=== PATIENT | male | born 1995 ===

== ENCOUNTER 2019-01-01 07:04 | Emergency (ER) | payer OTHER ==
[2019-01-01 07:11] VITALS: BMI 20.9
--- NOTE | 2019-01-01 07:40 | ED PDOC ---
HPI: Psych/Substance Abuse Time Seen by Provider: 01/01/19 07:14 Chief Complaint (Nursing): Psychiatric Evaluation Chief Complaint (Provider): Psychiatric Evaluation History Per: Patient, EMS History/Exam Limitations: no limitations Onset/Duration Of Symptoms: Hrs Current Symptoms Are (Timing): Still Present Associated Symptoms: denies: Suicidal Thoughts Additional Complaint(s): 23 year old male with unknown past medical and psychiatric history who was brought to the ED by EMS for psychiatric evaluation. According to EMS, reported that patient was extremely religiously preoccupied sometime early this morning and was singing repeatedly about god and his love for god. She stated that patient ran out of the house and was standing in the rain, all of which prompted her concern for his safety so she called 911. Patient is denying any medical complaints at this time and is observed to be religiously preoccupied. He blessed the provider repeatedly and hugged him, citing his love for Raghavendra Ty. Patient continues to deny any medical or psychiatric complaints and denies any medical or psychiatric history. Patient denies any suicidal or homicidal ideation at this time. PMD: none provided Past Medical History Reviewed: Historical Data, Nursing Documentation, Vital Signs Vital Signs: Last Vital Signs Temp 98.0 F 01/01/19 07:11 Pulse 100 H 01/01/19 07:11 Resp 18 01/01/19 07:11 BP 137/90 01/01/19 07:11 Pulse Ox 98 01/01/19 07:11 - Medical History PMH: No Chronic Diseases - Surgical History Surgical History: No Surg Hx - Family History Family History: States: Unknown Family Hx - Social History Current smoker - smoking cessation education provided: No Alcohol: None Drugs: Denies - Home Medications Home Medications: Ambulatory Orders Medication Instructions Recorded No Known Home Med 01/01/19 - Allergies Allergies/Adverse Reactions: Allergies Allergy/AdvReac Type Severity Reaction Status Date / Time No Known Allergies Allergy Verified 01/01/19 07:18 Review of Systems ROS Statement: Except As Marked, All Systems Reviewed And Found Negative Psych: Positive for: Other (religiously preoccupied, (-) homicidal ideation). Negative for: Suicidal ideation Physical Exam - Reviewed Nursing Documentation Reviewed: Yes Vital Signs Reviewed: Yes - Physical Exam Appears: Positive for: Non-toxic, No Acute Distress Head Exam: Positive for: ATRAUMATIC, NORMAL INSPECTION, NORMOCEPHALIC Skin: Positive for: Normal Color, Warm, DRY Eye Exam: Positive for: EOMI, Normal appearance, PERRL Neck: Positive for: Normal, Painless ROM Cardiovascular/Chest: Positive for: Regular Rate, Rhythm. Negative for: Murmur Respiratory: Positive for: Normal Breath Sounds. Negative for: Respiratory Distress Gastrointestinal/Abdominal: Positive for: Normal Exam, Soft. Negative for: Tenderness Extremity: Positive for: Normal ROM. Negative for: Deformity, Swelling Neurological/Psych: Positive for: Awake, Alert, Normal Tone, Oriented (x3), Mood/Affect (euphoric affect ). Negative for: Motor/Sensory Deficits - Laboratory Results Result Diagrams: 01/01/19 09:24 01/01/19 09:24 - ECG O2 Sat by Pulse Oximetry: 98 (RA) Pulse Ox Interpretation: Normal Medical Decision Making Medical Decision Making: Time: 7:18 Impression: 23 year old male brought to Ed for psychiatric evaluation in setting of yazidism preoccupation Plan: --Patient placed on 1:1 due to elopement risk --Crisis Evaluation ordered 8:05 presented to the ED and provided further history. She states that she did not call 911 and that police found him acting bizarre after he ran out of the house. She reports that they informed her and then brought him to the ED. According to , patient came from [place] in 2018 and has been fine but for the last few weeks has been extremely religiously preoccupied. She admits that she now feels that he has an "obsession." also reports that patient never seems to be responding to any auditory or visual hallucinations. 10:30 Patient referred for [facility] [place] crisis team. 11:15 Patient is resting comfortably in the ED at this time with stable vitals. He offers no other complaints and is awaiting [facility] [place]. 12:25 patient is still resting in ED with no new complaints and stable vitals. Pending [facility] [place] 1:35 Vitals remain stable and patient is still comfortable in ED. Patient is still pe nding [facility] [place]. 3PM Patient signed out to Dr Gutierrez pending [facility] screener evaluation and re- evaluation Scribe Attestation: Documented by Traci Nguyen, acting as a scribe for Paul Jarvis MD. Provider Scribe Attestation: All medical record entries made by the Scribe were at my direction and personally dictated by me. I have reviewed the chart and agree that the record accurately reflects my personal performance of the history, physical exam, medical decision making, and the department course for this patient. I have also personally directed, reviewed, and agree with the discharge instructions and disposition. Disposition - Clinical Impression Clinical Impression: Paranoid behavior - Disposition Disposition: Routine/Home Disposition Time: 03:00 Condition: STABLE Forms: [employer] (Sammarinese)
[2019-01-01 09:41] LABS: BASO % 0.4 % (0.0-2.0); EOS % 0.1 % (0.0-4.0); LYMPH # 1.1 K/uL (1.0-4.3); LYMPH % 11.4 % (20.0-40.0); MEAN CELL VOLUME 86.6 fl (80.0-94.0); MEAN CORPUSCULAR HEMOGLOBIN 29.6 pg (27.0-31.0); MEAN CORPUSCULAR HGB CONC 34.2 g/dL (33.0-37.0); MEAN PLATELET VOLUME 8.9 fl (7.2-11.7); MONO # 0.6 K/uL (0.0-0.8); MONO % 6.5 % (0.0-10.0); NEUT % 81.6 % (50.0-75.0); RBC 5.08 Mil/uL (4.40-5.90); RED CELL DISTRIBUTION WIDTH 13.7 % (11.5-14.5); WHITE BLOOD COUNT 9.8 K/uL (4.8-10.8)
[2019-01-01 09:51] LABS: ALB/GLOB RATIO 1.4 (1.0-2.1); ALT/SGPT 23 U/L (21-72); AST/SGOT 30 U/L (17-59); BLOOD UREA NITROGEN 15 mg/dl (9-20); CALCIUM 10.1 mg/dL (8.4-10.2); GFR NON-AFRICAN AMERICAN > 60
[2019-01-01 12:19] LABS: BARBITURATES, UR NEGATIVE (NEGATIVE); BENZODIAZEPINES, UR NEGATIVE (NEGATIVE); OPIATES, UR NEGATIVE (NEGATIVE); PHENCYCLIDINE, UR NEGATIVE (NEGATIVE)
--- NOTE | 2019-01-01 15:17 | ED PDOC ---
- Laboratory Results Result Diagrams: 01/01/19 09:24 01/01/19 09:24 Lab Results: Total Bilirubin 1.0 mg/dl (0.2-1.3) 01/01/19 09:24 AST 30 U/L (17-59) 01/01/19 09:24 ALT 23 U/L (21-72) 01/01/19 09:24 Alkaline Phosphatase 60 U/L (38-126) 01/01/19 09:24 Total Protein 8.4 G/DL (6.3-8.2) H 01/01/19 09:24 Albumin 5.0 g/dL (3.5-5.0) 01/01/19 09:24 Globulin 3.4 gm/dL (2.2-3.9) 01/01/19 09:24 Albumin/Globulin Ratio 1.4 (1.0-2.1) 01/01/19 09:24 - ECG O2 Sat by Pulse Oximetry: 98 (RA) Medical Decision Making Medical Decision Makin: [place] [facility] [place]. Medical clearance on previous shift. Patient is stable at this time. 1622: Patient evaluated [place] [facility] [place] was accepted for [place]. Pending available bed for involuntary psych admission. Stable at this time. 1900 Pt very agitated and distraught. Hyperventilating. Ativan ordered. 1999 More comfortable and less anxious. 2200 Bed available in [facility] [place]. Stable for transfer. Disposition - Clinical Impression Clinical Impression: Paranoid behavior - POA Present On Arrival: None - Disposition Disposition: Other Institution Disposition Time: 22:15 Condition: STABLE Forms: [employer] (Sami)
--- NOTE | 2019-01-01 18:26 | CARD ---
APPROVED REPORT Date of service: 01/01/2019 EKG Measurement Heart [id number] <Conclusion> Normal sinus rhythm Early repolarization Normal ECG
[2019-01-01 20:29] VITALS: RESP 18; TEMP 98.1
[2019-01-01 23:50] VITALS: BP 119/69; PULSE 80
[2019-01-02 12:44] VITALS: O2SAT 98
--- NOTE | 2019-01-02 14:08 | RAD ---
Date of service: 01/01/2019 HISTORY: Clearance COMPARISON: Prior study available for comparison TECHNIQUE: 1 view obtained. FINDINGS: LUNGS: No active pulmonary disease. PLEURA: No significant pleural effusion identified, no pneumothorax apparent. CARDIOVASCULAR: No aortic atherosclerotic calcification present. Normal cardiac size. No pulmonary vascular congestion. OSSEOUS STRUCTURES: No significant abnormalities. VISUALIZED UPPER ABDOMEN: Normal. OTHER FINDINGS: Note made of multiple radiopaque densities overlying the upper abdomen felt to represent artifact IMPRESSION: No active disease.
== END 2019-01-01 23:45 | disposition short-term general hospital (02) ==
LOC: H.ER 07:04
DX: F22 Delusional disorders (principal)
CPT/HCPCS: 71045; 80053; 80320; 80324; 80345; 80346; 80349; 80353; 80358; 80361; 82948; 83992; 85025; 93005; 96372; 99285; J2060

== ENCOUNTER 2019-01-17 05:58 | Inpatient (IN) | payer OTHER ==
[2019-01-17 05:58] VITALS: BMI 20.9
--- NOTE | 2019-01-17 06:46 | ED PDOC ---
HPI: Psych/Substance Abuse Time Seen by Provider: 01/17/19 06:04 Chief Complaint (Nursing): Psychiatric Evaluation Chief Complaint (Provider): Psychiatric Evaluation ED Caveat: Acuity of Condition History Per: Patient History/Exam Limitations: clinical condition Onset/Duration Of Symptoms: Days Current Symptoms Are (Timing): Still Present Additional Complaint(s): 23 y/o male brought in for psychiatric evaluation. According to family, patient was recently admitted at [facility] for unspecified psychiatric illness. Family is unsure of the diagnosis. Patient was supposed to be taking risperdal and xanax but has not been taking them. Family states patient has been non-interactive, clutching hold of chair, not sleeping nor eating for the past three days. Family notes patient has been decompensating for the past three weeks. PMD: no provider Past Medical History Reviewed: Historical Data, Nursing Documentation, Vital Signs Vital Signs: Last Vital Signs Temp 97.8 F 01/17/19 06:00 Pulse 82 01/17/19 06:00 Resp 19 01/17/19 06:00 BP 116/82 01/17/19 06:00 Pulse Ox 98 01/17/19 06:00 Primary Care Provider: Non [facility] Provider, - Medical History PMH: No Chronic Diseases Denies: Diabetes, Hepatitis, HIV, HTN, Seizures, Sexually Transmitted Disease - Surgical History Surgical History: No Surg Hx - Family History Family History: States: Unknown Family Hx - Home Medications Home Medications: Ambulatory Orders Medication Instructions Recorded No Known Home Med 01/01/19 - Allergies Allergies/Adverse Reactions: Allergies Allergy/AdvReac Type Severity Reaction Status Date / Time No Known Allergies Allergy Verified 01/17/19 06:02 Review of Systems ROS Statement: Except As Marked, All Systems Reviewed And Found Negative Psych: Positive for: Psychosis (decompensating over the past three weeks) Physical Exam - Reviewed Nursing Documentation Reviewed: Yes Vital Signs Reviewed: Yes - Physical Exam Appears: Positive for: In Acute Distress (clenching eyes closed, lying still ) Head Exam: Positive for: ATRAUMATIC Skin: Positive for: Normal Color Eye Exam: Positive for: Other (Eyes clenched, won't let ) Neck: Positive for: Normal Cardiovascular/Chest: Negative for: Bradycardia, Tachycardia Respiratory: Negative for: Accessory Muscle Use, Respiratory Distress Extremity: Positive for: Normal ROM Neurological/Psych: Positive for: Awake (lying still but awake), Other (Patient will not participate in neuro examination. Patient will not follow commands) - ECG O2 Sat by Pulse Oximetry: 98 (RA) Pulse Ox Interpretation: Normal Medical Decision Making Medical Decision Making: Time: 628 A/P: 23 y/o male presenting with decompensation of psychiatric disease -- Will obtain medical clearance and crisis evaluation. -- Acetaminophen -- Alcohol Serum -- BMP -- Urine Drug Screen -- Crisis Evaluation -- CBC with Differentials -- Urinalysis Time: 699 -- Patient endorsed to Dr. Omer, pending ER workup, re-evaluation and final ER diposition. Scribe Attestation: Documented by Maryann Berger, acting as a scribe Chela Omer MD. Provider Scribe Attestation: All medical record entries made by the Scribe were at my direction and personally dictated by me. I have reviewed the chart and agree that the record accurately reflects my personal performance of the history, physical exam, medical decision making, and the department course for this patient. I have also personally directed, reviewed, and agree with the discharge instructions and disposition. Disposition - Clinical Impression Clinical Impression: Paranoid behavior - Patient ED Disposition Is Patient to be Admitted: Transfer of Care - Disposition Disposition: Transfer of Care Disposition Time: 07:00 Condition: STABLE Forms: [employer] ([place]i) Patient Signed Over To: Bridger Badillo Handoff Comments: ER workup, re-assessment and final ER disposition.
[2019-01-17 07:02] LABS: BASO % 0.9 % (0.0-2.0); EOS % 0.8 % (0.0-4.0); HEMOGLOBIN 15.1 g/dL (12.0-18.0); LYMPH # 1.6 K/uL (1.0-4.3); LYMPH % 30.8 % (20.0-40.0); MEAN CELL VOLUME 84.9 fl (80.0-94.0); MEAN CORPUSCULAR HEMOGLOBIN 29.6 pg (27.0-31.0); MEAN CORPUSCULAR HGB CONC 34.8 g/dL (33.0-37.0); MEAN PLATELET VOLUME 8.2 fl (7.2-11.7); MONO # 0.5 K/uL (0.0-0.8); MONO % 9.2 % (0.0-10.0); NEUT % 58.3 % (50.0-75.0); NRBC % 0.1 % (0.0-0.0); RBC 5.11 Mil/uL (4.40-5.90); RED CELL DISTRIBUTION WIDTH 13.8 % (11.5-14.5); WHITE BLOOD COUNT 5.2 K/uL (4.8-10.8)
[2019-01-17 07:08] LABS: ACETAMINOPHEN < 10.0 ug/ml (10.0-30.0); SALICYLATE < 1.0 mg/dl
[2019-01-17 07:10] LABS: BLOOD UREA NITROGEN 17 mg/dl (9-20); CALCIUM 9.8 mg/dL (8.4-10.2); GFR NON-AFRICAN AMERICAN > 60
--- NOTE | 2019-01-17 07:35 | ED PDOC ---
- Laboratory Results Result Diagrams: 01/17/19 06:50 01/17/19 06:50 - ECG O2 Sat by Pulse Oximetry: 98 (RA) Pulse Ox Interpretation: Normal - Progress ED Course And Treament: 930: Pt. not communicating. Will give ativan im to help relieve possible psychiatric related communication deficiency. Need urine for eval 1230: Pt. less catatonic. Moving around and some communication with family. Urine obtained. 1315: Stable. More communicative. Pt. agreed to sign in voluntary for psych. Medically stable for admit Medical Decision Making Medical Decision Makin:00 23 year old male presents to the ED for psychiatric evaluation. Patient medically cleared by Dr. Omer and patient care endorsed to Dr. Badillo pending reassessment and ED disposition Scribe Attestation: Documented by Tigist Rubi, acting as a scribe for Bridger Badillo MD Provider Scribe Attestation: All medical record entries made by the Scribe were at my direction and personally dictated by me. I have reviewed the chart and agree that the record accurately reflects my personal performance of the history, physical exam, medical decision making, and the department course for this patient. I have also personally directed, reviewed, and agree with the discharge instructions and disposition. Disposition - Clinical Impression Clinical Impression: Psychosis - POA Present On Arrival: None - Disposition Disposition: Admitted as In-Patient Disposition Time: 13:22 Condition: STABLE Forms: [employer] ([place]an)
[2019-01-17 13:14] LABS: BARBITURATES, UR NEGATIVE (NEGATIVE); BENZODIAZEPINES, UR NEGATIVE (NEGATIVE); OPIATES, UR NEGATIVE (NEGATIVE); PHENCYCLIDINE, UR NEGATIVE (NEGATIVE)
[2019-01-17] MEDS ORDERED: DiphenhydrAMINE 50 mg/ml Inj IM PRN (13:30)
[2019-01-17] MEDS ORDERED: Magnesium Hydroxide Susp 30 ml UD PO PRN (13:30)
[2019-01-17] MEDS ORDERED: Alum-Mag Hydrox-Simethicone Susp (30 mL) PO PRN (13:30)
[2019-01-17 13:45] LABS: SPERM URINE RARE /hpf; URINE BACTERIA MANY (<OCC); URINE BILIRUBIN NEGATIVE (NEGATIVE); URINE BLOOD MODERATE (NEGATIVE); URINE CLARITY SLIGHTY-CLOUDY (Clear); URINE COLOR YELLOW (YELLOW); URINE GLUCOSE (UA) NEG (NEGATIVE); URINE LEUKOCYTE ESTERASE NEG Leu/uL (Negative); URINE PROTEIN 30 mg/dL (NEGATIVE); URINE UROBILINOGEN 0.2-1.0 mg/dL (0.2-1.0)
[2019-01-17 13:57] LABS: GRANULAR CAST 5 /lpf (0-1)
[2019-01-17 14:47] VITALS: O2SAT 100
--- NOTE | 2019-01-17 15:33 | PCM.BM ---
<MayteChristina hendrickson - Last Filed: 01/17/19 15:31> Treatment Plan Problems - Problems identified on initial assessmt Psychosis Date Initiated: 01/17/19 Time Initiated: 15:30 Assessment reference: HP, NA Status: Active Treatment assets and liabiliti Patient Assests: cooperative, educated, ADL independent, physically healthy, negotiates basic needs, cognitively intact Patient Liabilities: substance abuse, language/speech - Milieu Protocol Maintain good personal hygiene: daily Encourage regular showers, every shift Remind patient to perform daily oral care, every shift Assist patient to perform ADL's Conduct patient checks and document Observation sheet: Q15 minutes Maintain personal safety: every shift Educate patient to report safety concerns to staff, every shift Monitor environment for contraband/sharps Medication safety: Monitor for expected outcome, potential side effects: every shift, Assess barriers to learning: every shift, Assess readiness for medication education: every shift <Makayla Petit - Last Filed: 01/18/19 10:25> - Diagnosis (1) Schizophrenia Status: Acute Interventions: Medication management, Individual and group therapy, Psychoeducation 01/18/19 10:26 <Eliz Glover - Last Filed: 01/20/19 14:24> Family Contact Family contact: Other (Pt is acutely psychotic and refusing to speak to staff on the unit. Pt observed to be lying in bed praying excessively.) - Goals for Treatment Patient goals for treatment: Pt will improve overall mood. Pt will take medications as prescribed on a daily basis. Pt will attend clinical and activity groups. Pt will be free of paranoia and hallucinations. Discharge/Continuing Care - Education Needs Education Needs: Patient Medication, Patient Diagnosis/Disease Process, Patient Coping Skills, Patient Community resources, Patient Activities of Daily Living, Patient Health Practices/Safety, Patient Personal Hygiene/Grooming, Patient Aftercare Safety Plan - Discharge Discharge Criteria: Tolerates medication w/o severe side effects, Free of paranoid thoughts, Normal sleep pattern, Ability to care for self, Reduction of target symptoms Discharge to:: Home, With Family - Additional Comments 01/20/19 14:21 Pt discussed in team meeting. Pt unable to attend team meeting due to acute psychosis and paranoia. Since admission pt has been refusing to eat, drink, get out of bed and comply with prescribed medications. Pt was [place] [facility] [place]. Pt is pending [facility] bed availability and transfer [place] [facility] [place] further treatment. Pt is observed to be lying in bed and praying excessively. Pt's medications reviewed. Pt's medical and social issues reviewed. Tx plan reviewed and discussed. Pt is not linked to services at the present time. SW will continue to follow case. - Treatment Team Participation Discussed with Family/SO: No Was Patient/Family/SO present at Treatment Team Meeting: No (Pt did not attend due to acute psychosis. )
--- NOTE | 2019-01-17 16:48 | CP.PCM.CON ---
<Edwar Patrick - Last Filed: 01/17/19 17:25> History of Present Illness - History of Present Illness History of Present Illness: The patient is a 23 Y/O male brought to [facility] ED for psychiatric evaluation. The patient is a poor historian/not very interactive in conversation and there is no family at bedside during interview, limited history is obtained from patient and review of chart. Patient is AAOx3, he knows that he is in the psych unit of the hospital, states that he was brought to hospital by his and aunt because he was not sleeping well and he was praying to God and fasting for 1 day, when asked he does not tell whether he was having auditory allucinations. Patient states he has been in [place] for only for 1 year, he is originally from [facility]. As per Chart review patient was recently admitted at [facility] for unspecified psychiatric illness, family is unsure of Dx and patient was supposed to be taking risperdal and xanax and was not as per family reports. During my encounter with patient, he states feeling well at present, denies MADERA, CP, SOB, palpitations, Wt loss, N/V/D/C, abdominal pain, dysuria, chills, fever or other acute medical complaint at this time. Of Note patient mentions that few days ago he was taken to a [facility] after an episode of fall at work, he is unclear if he had a seizures or pass out (no cooperative with interview when asked), does not tell where in [place] he was taken. Patient states he had a CT of his head done and was normal. ROS: As per HPI PMH: Denies FMH: Denies ALLERG: NKDA SOCHx: Patient is from [facility], states he is , works in a warehouse. Patient admits he used in the past marijuana and cocaine 4 years ago in [facility], denies any recent recreational drug use. Denies Tobacco or ETOH use. SURGHx: Denies PMD: None LAbs reviewed CBC/CHEM unremarkable UA reviewed TSH, T4 Lipids ordered by psych attending, pending Past Patient History - Past Social History Smoking Status: Unknown If Ever Smoked - CARDIAC Hx Cardiac Disorders: No - PULMONARY Hx Tuberculosis: No - NEUROLOGICAL HX Cerebrovascular Accident: No Hx Seizures: Yes Other/Comment: pt. reported he had one 1-2 weeks ago as per patient. it was during but reports he went to have it checked and no abnormalities reported. - HEENT Hx HEENT Problems: No - HEMATOLOGICAL/ONCOLOGICAL Hx Cancer: No Hx Human Immunodeficiency Virus (HIV): No - INTEGUMENTARY Hx Dermatological Problems: No - MUSCULOSKELETAL/RHEUMATOLOGICAL Hx Musculoskeletal Disorders: No Hx Falls: No - GASTROINTESTINAL Hx Gastrointestinal Disorders: No - GENITOURINARY/GYNECOLOGICAL Hx Genitourinary Disorders: No Hx Sexually Transmitted Disorders: No - PSYCHIATRIC Hx Substance Use: Yes (smoked drugs unable to specify) - SURGICAL HISTORY Hx Surgeries: No Meds Allergies/Adverse Reactions: Allergies Allergy/AdvReac Type Severity Reaction Status Date / Time No Known Allergies Allergy Verified 01/17/19 06:02 - Medications Medications: Current Medications Acetaminophen (Tylenol 325mg Tab) 650 mg PO Q4 PRN PRN Reason: Pain, moderate (4-7) Al Hydrox/Mg Hydrox/Simethicone (Maalox Plus 30 Ml) 30 ml PO Q4 PRN PRN Reason: Dyspepsia Diphenhydramine HCl (Benadryl) 50 mg IM Q6 PRN PRN Reason: Extrapyramidal S/S Unable PO Diphenhydramine HCl (Benadryl) 50 mg PO Q6 PRN PRN Reason: Extrapyramidal Symptoms Haloperidol (Haldol) 5 mg PO Q4 PRN PRN Reason: Agitation Haloperidol Lactate (Haldol) 5 mg IM Q4 PRN PRN Reason: Agitation, Unable to Take PO Lorazepam (Ativan) 2 mg IM Q4 PRN PRN Reason: Anxiety/Agitation,Unable PO Lorazepam (Ativan) 2 mg PO Q4 PRN PRN Reason: Anxiety/Agitation Magnesium Hydroxide (Milk Of Magnesia) 30 ml PO HS PRN PRN Reason: Constipation Risperidone (Risperdal M-Tab) 1 mg PO Q12 ERICA Physical Exam - Constitutional Appears: Well, No Acute Distress - Head Exam Head Exam: NORMAL INSPECTION - Eye Exam Eye Exam: EOMI - ENT Exam ENT Exam: Mucous Membranes Moist - Respiratory Exam Respiratory Exam: Clear to Auscultation Bilateral, NORMAL BREATHING PATTERN - Cardiovascular Exam Cardiovascular Exam: REGULAR RHYTHM, +S1, +S2 - GI/Abdominal Exam GI & Abdominal Exam: Soft. absent: Tenderness - Extremities Exam Extremities exam: Positive for: normal inspection - Neurological Exam Neurological exam: Alert, CN II-XII Intact, Oriented x3 - Psychiatric Exam Psychiatric exam: Flat Affect - Skin Skin Exam: Normal Color, Warm Results - Vital Signs Recent Vital Signs: Last Vital Signs Temp 98.7 F 01/17/19 15:58 Pulse 98 H 01/17/19 15:58 Resp 20 01/17/19 15:58 BP 104/70 01/17/19 15:58 Pulse Ox 100 01/17/19 14:00 - Labs Result Diagrams: 01/17/19 06:50 01/17/19 06:50 Labs: Laboratory Results - last 24 hr 01/17/19 01/17/19 01/17/19 06:50 06:50 06:50 WBC 5.2 RBC 5.11 Hgb 15.1 Hct 43.4 MCV 84.9 MCH 29.6 MCHC 34.8 RDW 13.8 Plt Count 278 MPV 8.2 Neut % (Auto) 58.3 Lymph % (Auto) 30.8 [place] % (Auto) 9.2 Eos % (Auto) 0.8 Baso % (Auto) 0.9 Neut # (Auto) 3.0 Lymph # (Auto) 1.6 [place] # (Auto) 0.5 Eos # (Auto) 0.0 Baso # (Auto) 0.0 Sodium 140 Potassium 4.2 Chloride 99 Carbon Dioxide 28 Anion Gap 17 BUN 17 Creatinine 0.8 Est GFR ( Amer) > 60 Est GFR (Non-Af Amer) > 60 POC Glucose (mg/dL) Random Glucose 95 Calcium 9.8 Urine Color Urine Clarity Urine pH Ur Specific [place] Urine Protein Urine Glucose (UA) Urine Ketones Urine Blood Urine Nitrate Urine Bilirubin Urine Urobilinogen Ur Leukocyte Esterase Urine RBC (Auto) Urine Microscopic WBC Urine Bacteria Granular Casts (Auto) Urine Yeast (Budding) Urine Sperm (Auto) Salicylates < 1.0 Urine Opiates Screen Urine Methadone Screen Acetaminophen < 10.0 L Ur Barbiturates Screen Ur Phencyclidine Scrn Ur Amphetamines Screen U Benzodiazepines Scrn U Oth Cocaine Metabols U Cannabinoids Screen Alcohol, Quantitative < 10 01/17/19 01/17/19 01/17/19 06:52 12:46 12:46 WBC RBC Hgb Hct MCV MCH MCHC RDW Plt Count MPV Neut % (Auto) Lymph % (Auto) [place] % (Auto) Eos % (Auto) Baso % (Auto) Neut # (Auto) Lymph # (Auto) [place] # (Auto) Eos # (Auto) Baso # (Auto) Sodium Potassium Chloride Carbon Dioxide Anion Gap BUN Creatinine Est GFR ( Amer) Est GFR (Non-Af Amer) POC Glucose (mg/dL) 98 Random Glucose Calcium Urine Color Yellow Urine Clarity Slighty-cloudy Urine pH 6.0 Ur Specific [place] 1.030 Urine Protein 30 Urine Glucose (UA) Neg Urine Ketones Trace Urine Blood Moderate Urine Nitrate Negative Urine Bilirubin Negative Urine Urobilinogen 0.2-1.0 Ur Leukocyte Esterase Neg Urine RBC (Auto) 10 H Urine Microscopic WBC 5 Urine Bacteria Many H Granular Casts (Auto) 5 Urine Yeast (Budding) Occ H Urine Sperm (Auto) Rare H Salicylates Urine Opiates Screen Negative Urine Methadone Screen Negative Acetaminophen Ur Barbiturates Screen Negative Ur Phencyclidine Scrn Negative Ur Amphetamines Screen Negative U Benzodiazepines Scrn Negative U Oth Cocaine Metabols Negative U Cannabinoids Screen Negative Alcohol, Quantitative Assessment & Plan - Assessment and Plan (Free Text) Assessment: 23 Y/O male brought to [facility] ED for psychiatric evaluation and decompensation of psychiatry illness. Patient denies PMH. DEnies acute medical complaint at present. Impression: Scizophrenia managemt as per Psych Thank you for this consult Case and plan d/w attending Dr Jarrell. <Connor Jarrell D - Last Filed: 01/17/19 17:27> Meds - Medications Medications: Current Medications Acetaminophen (Tylenol 325mg Tab) 650 mg PO Q4 PRN PRN Reason: Pain, moderate (4-7) Al Hydrox/Mg Hydrox/Simethicone (Maalox Plus 30 Ml) 30 ml PO Q4 PRN PRN Reason: Dyspepsia Diphenhydramine HCl (Benadryl) 50 mg IM Q6 PRN PRN Reason: Extrapyramidal S/S Unable PO Diphenhydramine HCl (Benadryl) 50 mg PO Q6 PRN PRN Reason: Extrapyramidal Symptoms Haloperidol (Haldol) 5 mg PO Q4 PRN PRN Reason: Agitation Haloperidol Lactate (Haldol) 5 mg IM Q4 PRN PRN Reason: Agitation, Unable to Take PO Lorazepam (Ativan) 2 mg IM Q4 PRN PRN Reason: Anxiety/Agitation,Unable PO Lorazepam (Ativan) 2 mg PO Q4 PRN PRN Reason: Anxiety/Agitation Magnesium Hydroxide (Milk Of Magnesia) 30 ml PO HS PRN PRN Reason: Constipation Risperidone (Risperdal M-Tab) 1 mg PO Q12 ERICA Results - Vital Signs Recent Vital Signs: Last Vital Signs Temp 98.7 F 01/17/19 15:58 Pulse 98 H 01/17/19 15:58 Resp 20 01/17/19 15:58 BP 104/70 01/17/19 15:58 Pulse Ox 100 01/17/19 14:00 - Labs Result Diagrams: 01/17/19 06:50 01/17/19 06:50 Labs: Laboratory Results - last 24 hr 01/17/19 01/17/19 01/17/19 06:50 06:50 06:50 WBC 5.2 RBC 5.11 Hgb 15.1 Hct 43.4 MCV 84.9 MCH 29.6 MCHC 34.8 RDW 13.8 Plt Count 278 MPV 8.2 Neut % (Auto) 58.3 Lymph % (Auto) 30.8 [place] % (Auto) 9.2 Eos % (Auto) 0.8 Baso % (Auto) 0.9 Neut # (Auto) 3.0 Lymph # (Auto) 1.6 [place] # (Auto) 0.5 Eos # (Auto) 0.0 Baso # (Auto) 0.0 Sodium 140 Potassium 4.2 Chloride 99 Carbon Dioxide 28 Anion Gap 17 BUN 17 Creatinine 0.8 Est GFR ( Amer) > 60 Est GFR (Non-Af Amer) > 60 POC Glucose (mg/dL) Random Glucose 95 Calcium 9.8 Urine Color Urine Clarity Urine pH Ur Specific [place] Urine Protein Urine Glucose (UA) Urine Ketones Urine Blood Urine Nitrate Urine Bilirubin Urine Urobilinogen Ur Leukocyte Esterase Urine RBC (Auto) Urine Microscopic WBC Urine Bacteria Granular Casts (Auto) Urine Yeast (Budding) Urine Sperm (Auto) Salicylates < 1.0 Urine Opiates Screen Urine Methadone Screen Acetaminophen < 10.0 L Ur Barbiturates Screen Ur Phencyclidine Scrn Ur Amphetamines Screen U Benzodiazepines Scrn U Oth Cocaine Metabols U Cannabinoids Screen Alcohol, Quantitative < 10 01/17/19 01/17/19 01/17/19 06:52 12:46 12:46 WBC RBC Hgb Hct MCV MCH MCHC RDW Plt Count MPV Neut % (Auto) Lymph % (Auto) [place] % (Auto) Eos % (Auto) Baso % (Auto) Neut # (Auto) Lymph # (Auto) [place] # (Auto) Eos # (Auto) Baso # (Auto) Sodium Potassium Chloride Carbon Dioxide Anion Gap BUN Creatinine Est GFR ( Amer) Est GFR (Non-Af Amer) POC Glucose (mg/dL) 98 Random Glucose Calcium Urine Color Yellow Urine Clarity Slighty-cloudy Urine pH 6.0 Ur Specific [place] 1.030 Urine Protein 30 Urine Glucose (UA) Neg Urine Ketones Trace Urine Blood Moderate Urine Nitrate Negative Urine Bilirubin Negative Urine Urobilinogen 0.2-1.0 Ur Leukocyte Esterase Neg Urine RBC (Auto) 10 H Urine Microscopic WBC 5 Urine Bacteria Many H Granular Casts (Auto) 5 Urine Yeast (Budding) Occ H Urine Sperm (Auto) Rare H Salicylates Urine Opiates Screen Negative Urine Methadone Screen Negative Acetaminophen Ur Barbiturates Screen Negative Ur Phencyclidine Scrn Negative Ur Amphetamines Screen Negative U Benzodiazepines Scrn Negative U Oth Cocaine Metabols Negative U Cannabinoids Screen Negative Alcohol, Quantitative Attending/Attestation - Attestation I have personally seen and examined this patient.: Yes I have fully participated in the care of the patient.: Yes I have reviewed all pertinent clinical information: Yes Notes (Text): 01/17/19 17:27 Patient seen and examined with resident. Case discussed and agreed with assessment.
[2019-01-17] MEDS ORDERED: Risperidone M tab 1 MG PO SCH (22:00)
[2019-01-18] MEDS: Risperidone M tab 1 MG PO SCH ×2 (03:33→09:22)
[2019-01-18 05:47] VITALS: RESP 18
--- NOTE | 2019-01-18 09:30 | PCM.PSYCH ---
Initial Psychiatric Evaluation - Initial Psychiatric Evaluation Type of Admission: Voluntary Legal Status: Capacity Chief Complaint (in patient's own words): Acute psychosis/ oriental orthodox preoccupations Patient's Reaction to Hospitalization: HPI: 23 yo male w/ h/o 1 prior involuntary admission to [facility], presents acutely bizarre, refusing to talk, praying excessively, internally preoccupied, not eating and not sleeping. Patient is currently refusing to speak with fiction and nonfiction prose writer or staff. He is not catatonic and does not have posturing. He is intentionally not speaking to fiction and nonfiction prose writer. Additional collateral from ER Cw: CW, HM & BG, spoke to pts Spouse, Gabi MartiXnzgwvzee-[phone], and pts paternal aunt, Nellie Downing, who stated pt did not eat the whole day yesterday and this is the first time. She state around 9:30pm last night, pt went to the kitchen and kneeled down praying to the lord and never got up until 5:30am. Pts called 911. She stated pt was prescribed medications and pt is not compliant with them and is refusing psych tx. She stated she did not know the names. She stated pt keeps telling her that the [facility]aritan is going to save him. She stated since pt left [facility] pt is only sleeping 30 minutes to an hour and then goes to pray at [facility] and then comes home and continues to pray. Pts aunt stated there is no family hx in the family and stated pt was okay in [place], however, stated everything has changed since he has been in [place] and stated it will be a year that pt has been here. She stated pt has not been to anyone since yesterday. They both agreed that pt needs psych admission. PPHx: Pt was discharged from [facility] recently after being screened and accepted at [facility] on 01/01/19. Patient is not compliant with treatment or medications. ALL: NKDA SHx: From [place]; , works in a warehouse, h/o marijuana and cocaine use 4 years ago; no current drugs/etoh/cig use PMHx: No chronic medical issues Current Medications: Active Medications Generic Name Dose Route Start Last Admin Trade Name Freq PRN Reason Stop Dose Admin Acetaminophen 650 mg 01/17/19 13:30 Tylenol 325mg Tab PO Q4 PRN Pain, moderate (4-7) Al Hydrox/Mg Hydrox/Simethicone 30 ml 01/17/19 13:30 Maalox Plus 30 Ml PO Q4 PRN Dyspepsia Diphenhydramine HCl 50 mg 01/17/19 13:30 Benadryl IM Q6 PRN Extrapyramidal S/S Unable PO Diphenhydramine HCl 50 mg 01/17/19 13:30 Benadryl PO Q6 PRN Extrapyramidal Symptoms Haloperidol 5 mg 01/17/19 13:30 Haldol PO Q4 PRN Agitation Haloperidol Lactate 5 mg 01/17/19 13:30 Haldol IM Q4 PRN Agitation, Unable to Take PO Lorazepam 2 mg 01/17/19 13:30 Ativan IM Q4 PRN Anxiety/Agitation,Unable PO Lorazepam 2 mg 01/17/19 14:00 Ativan PO Q4 PRN Anxiety/Agitation Magnesium Hydroxide 30 ml 01/17/19 13:30 Milk Of Magnesia PO HS PRN Constipation Risperidone 1 mg 01/17/19 21:00 01/18/19 09:22 Risperdal M-Tab PO Not Given Q12 ERICA Past Psychiatric History - Past Psychiatric History Previous Treatment History: Inpatient Pertinent Medical Hx (Current Medical&Sleep Prob, Allergies): Allergies Allergy/AdvReac Type Severity Reaction Status Date / Time No Known Allergies Allergy Verified 01/17/19 06:02 No Known Home Med 01/01/19 Review of Systems - Psychiatric Psychiatric: As Per HPI, Abnormal Sleep Pattern, Behavioral Changes, Change in Appetite, Difficulty Concentrating, Mood Swings, Other (Delusions, oriental orthodox preoccupation) Mental Status Examination - Personal Presentation Personal Presentation: Looks stated age - Affect Affect: Flat - Motor Activity Motor Activity: Psychomotor Retardation - Reliability in Providing Information Reliability in Providing Information: Poor, due to alteration in thoughts - Speech Speech: Other (Poverty of speech) - Formal Thought Process Formal Thought Process: Delusions - Hallucinations/Delusions Additional comments: Previous denied AH/VH; but patient seems internally preoccupied and psychotic - Cognitive Functions Orientation: Person, Place, Situation, Time Judgement: Imparied, as evidence by: Poor judgement, Imparied, as evidence by: Lack of insight into illness - Risk Risk: Diminished functioning - Strength & Assets Inventory Strength & Assets Inventory: Family support DSM 5 DX - DSM 5 DSM 5 Diagnosis: Schizophrenia - Recommended/Plan of Treatment Treatment Recommendations and Plan of Treatment: Schizophrenia -Admit to psychiatry unit -Patient not cooperative with treatment or medications; will screen for involuntary psychiatric admission -Psychoeducation -Disposition planning - Smoking Cessation Smoking Cessation Initiated: No Reason for not providing: Not indicated
--- NOTE | 2019-01-19 08:31 | PCM.PYCHPN ---
Psychiatric Progress Note - Psychiatric Progress Note Patient seen today, length of contact: Pt evaluated, case discussed w/ team, chart reviewed Patient Chief Complaint: Acute psychosis/ yazdanism preoccupations Problems Identified/Issues Discussed: Patient was screened for involuntary psychiatric commitment and was accepted. He continues to be religiously preoccupied, refusing to speak with staff, praying excessively at times and refusing to eat. Medication Change: No (Patient refusing all medications) Medical Record Reviewed: Yes Consults ordered or reviewed: Medicine consult Mental Status Examination - Cognitive Function Orientation: Person, Place, Situation, Time - Affect Affect: Flat - Formal Thought Process Formal Thought Process: Delusions Psychotic Thoughts and Behaviors: Delusion, yazdanism preoccupation Goal/Treatment Plan - Goal/Treatment Plan Need for Continued Stay: Remain at risks for inpatient hospitalization, Severe depression anxiety, Discharge may exacerbated symptoms Progress Toward Problem(s) and Goals/Treatment Plan: Schizophrenia -Pending involuntary psychiatric admission -Patient refusing treatment and medications at this time -Medicine consult
[2019-01-19] MEDS: Risperidone M tab 1 MG PO SCH ×2 (09:00→21:33)
[2019-01-20 06:43] VITALS: BP 106/72; PULSE 81; TEMP 97.6
[2019-01-20] MEDS: Risperidone M tab 1 MG PO SCH (08:29)
--- NOTE | 2019-01-20 08:56 | PCM.PYCHDC ---
Mental Status Examination - Mental Status Examination Orientation: Person, Place, Situation, Time Memory: Intact Affect: Blunted Formal Thought Process: Delusions, Paranoia Description of patient's judgement and insight: Poor I/J Psychotic Thoughts and Behaviors: Delusion, adventist preoccupation Suicidal Ideation: No Current Homicidal Ideation?: No Discharge Summary - Discharge Note Reason for Hospitalization: HPI: 23 yo male w/ h/o 1 prior involuntary admission [place] [facility], presents acutely bizarre, refusing to talk, praying excessively, internally preoccupied, not eating and not sleeping. Patient is currently refusing to speak with telegraphic typewriter installer or staff. He is not catatonic and does not have posturing. He is intentionally not speaking to telegraphic typewriter installer. Additional collateral from ER Cw: CW, HM & BG, spoke to pts Spouse, Gabi MartiLkkpkjvna-[phone], and pts paternal aunt, Nellie Downing, who stated pt did not eat the whole day yesterday and this is the first time. She state around 9:30pm last night, pt went to the kitchen and kneeled down praying to the lord and never got up until 5:30am. Pts called 911. She stated pt was prescribed medications and pt is not compliant with them and is refusing psych tx. She stated she did not know the names. She stated pt k eeps telling her that the denominational is going to save him. She stated since pt left [facility] pt is only sleeping 30 minutes to an hour and then goes to pray at denominational and then comes home and continues to pray. Pts aunt stated there is no family hx in the family and stated pt was okay in [place], however, stated everything has changed since he has been in [place] and stated it will be a year that pt has b een here. She stated pt has not been to anyone since yesterday. They both agreed that pt needs psych admission. PPHx: Pt was discharged from [facility] [place] after being screened and accepted at [facility] on 01/01/19. Patient is not compliant with treatment or medications. 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 Reason for request. 2. Findings. 3. Follow-up Consultations: Medicine consult Summary of Hospital Course include:: 1. Description of specific treatment plan utilized for patients during their course of treatmen. 2. Summarize the time- course for resolution of acute symptoms and/or regressed behaviors. 3. Describe issues identified and worked on during hospitalization. 4. Describe medication utilized. 5. Describe medical problems identified and treated. 6. Reassessment of suicide risk Summary of Hospital Course: Patient was admitted to the psychiatry unit. Individual and group therapy were provided. Patient refused all treatment and medications. He is psychotic, internally preoccupied, religiously preoccupied, refusing to talk, refusing to eat and drink. He was screened for involuntary psychiatric admission and will be transferred at this time as patient is an acute danger to himself. - Diagnosis (1) Schizophrenia Current Visit: Yes Status: Acute - Final Diagnosis (DSM 5) Condition upon Discharge: STABLE DSM 5: Schizophrenia Disposition: Trans to Other Acute Care Hosp Follow-up Treatment Plan: Schizophrenia -Transfer to [facility] [place] - Smoking Cessation Smoking Cessation Medication prescribed: No Reason for not providing: Not indicated - Antipsychotic Medications Pt discharged on 2 or more routine antipsychotic medications: No
== END 2019-01-20 16:00 | DRG 750 ==
LOC: H.ER 05:58 → H.ERHOLD 13:06 → H.STEP 15:10
PROVIDERS: ADMIT Psychiatry & Neurology Psychiatry; ATTEND Psychiatry & Neurology Psychiatry
DX: F20.9 Schizophrenia, unspecified (principal); Z91.14 Patient's other noncompliance with medication regimen; Z91.19 Patient's noncompliance with other medical treatment and regimen